=== PATIENT | female | born 1980 | race Caucasian/White ===

== ENCOUNTER 2019-12-30 12:56 | Emergency (ER) | payer MEDICAID ==
[~2019-12-30] VITALS: Ht 175.3 cm; Wt 75.3 kg
[2019-12-30 13:10] VITALS: BP_SYST 109
[2019-12-30] MEDS ORDERED: PHENAZOPYRIDINE HCL 100 MG TABLET PO ONE (13:30)
[2019-12-30] MEDS ORDERED: KETOROLAC TROMETHAMINE 30 MG VIAL IM ONE (13:30)
[2019-12-30 14:03] VITALS: BP_SYST 109
== END 2019-12-30 14:03 | disposition home or self-care (01) ==
LOC: SED 12:56
DX: N39.0 Urinary tract infection, site not specified (principal); Z88.6 Allergy status to analgesic agent
CPT/HCPCS: 81002; 81025; 87086; 96372; 99283; J1885